=== PATIENT | male | born 1985 | race African-American/Black ===

== ENCOUNTER 2023-01-27 22:46 | Emergency (ER) | payer OTHER ==
[~2023-01-27] VITALS: Ht 175.3 cm; Wt 81.6 kg
[2023-01-27 23:33] VITALS: BP 140/86; PULSE 96; RESP 16; TEMP 97.4; O2SAT 96
[2023-01-28 00:20] VITALS: BP 112/79; PULSE 89; RESP 16; TEMP 98; O2SAT 98
== END 2023-01-28 00:20 ==
LOC: MED 22:46
DX: Z02.89 Encounter for other administrative examinations (principal); V49.88XA Car occupant (driver) (passenger) injured in other specified transport accidents, initial encounter; Y93.89 Activity, other specified; Y92.89 Other specified places as the place of occurrence of the external cause; Y99.8 Other external cause status
CPT/HCPCS: 99283